=== PATIENT | male | born 1960 | race Caucasian/White ===

== ENCOUNTER → 2017-05-27 | Outpatient (CLI) | payer OTHER ==
[2017-05-27] MEDS: ZOLPIDEM 5 MG TABLET. PO ×2 (21:30)
[2017-05-27] MEDS: OXYMETAZOLINE 0.05% NASAL SPRAY 30ML BOTTLE. NS ×2 (21:30)
== END | disposition home or self-care (01) ==
LOC: SLPLAB 18:02
DX: G47.33 Obstructive sleep apnea (adult) (pediatric) (principal); R40.0 Somnolence
CPT/HCPCS: 95810

== ENCOUNTER → 2017-07-23 | Outpatient (CLI) | payer OTHER | END | disposition home or self-care (01) | LOC: ECHO 07:53 | DX: I36.1 Nonrheumatic tricuspid (valve) insufficiency (principal); I51.7 Cardiomegaly; F10.10 Alcohol abuse, uncomplicated; E66.9 Obesity, unspecified | CPT/HCPCS: 93306 ==

== ENCOUNTER → 2017-08-08 | Outpatient (CLI) | payer OTHER ==
[2017-08-08 09:55] LABS: ADD MAN DIFF? NO
[2017-08-08 10:07] LABS: BASO % 1 % (0-3); EOS # 0.1 x10^3/uL (0.0-0.7); EOS % 2 % (0-3); HEMATOCRIT 44.7 % (39.0-53.0); HEMOGLOBIN 15.5 g/dL (13.0-17.5); LYMPH # 1.8 x10^3/uL (1.0-4.8); LYMPH % 32 % (24-48); MEAN CORPUSCULAR HEMOGLOBIN 33 pg (25-35); MEAN CORPUSCULAR HGB CONC 35 g/dL (31-37); MEAN CORPUSCULAR VOLUME 95 fL (79-100); MONO # 0.5 x10^3/uL (0.0-1.1); MONO % 9 % (0-9); NEUT # 3.1 x10^3uL (1.8-7.7); NEUT % 57 % (31-73); PLATELET COUNT 289 x10^3/uL (140-400); RED BLOOD COUNT 4.72 x10^6/uL (4.30-5.70); RED CELL DISTRIBUTION WIDTH 12.4 % (11.5-14.5); WHITE BLOOD COUNT 5.5 x10^3/uL (4.0-11.0)
[2017-08-08 10:26] LABS: ALBUMIN 3.8 g/dL (3.4-5.0); ALK PHOS 57 U/L (46-116); ALT (SGPT) 59 U/L (16-63); ANION GAP 9 (6-14); AST (SGOT) 24 U/L (15-37); BLOOD UREA NITROGEN 12 mg/dL (8-26); BUN/CREATININE RATIO 12 (6-20); CALCIUM 9.1 mg/dL (8.5-10.1); CARBON DIOXIDE 27 mmol/L (21-32); CHLORIDE 106 mmol/L (98-107); CHOLESTEROL 180 mg/dL (0-200); GFR 76.5; GLUCOSE 94 mg/dL (70-99); HDLC 56 mg/dL (40-60); LDLC 107 mg/dL (0-100); NON-HDL CHOLESTEROL 124 mg/dL (0-129); POTASSIUM 4.4 mmol/L (3.5-5.1); SODIUM 142 mmol/L (136-145); TOTAL BILIRUBIN 0.5 mg/dL (0.2-1.0); TOTAL PROTEIN 7.6 g/dL (6.4-8.2); TRIGLYCERIDES 85 mg/dL (0-150); VLDLC 17 mg/dL (0-40)
[2017-08-08 10:27] LABS: CHOLESTEROL/HDL RATIO 3.2
[2017-08-08 10:39] LABS: THYROID STIM HORMONE (TSH) 0.635 uIU/mL (0.358-3.74)
[2017-08-08 11:38] LABS: PROSTATE SPECIFIC ANTIGEN 1.03 ng/mL (0.00-4.00)
== END | disposition home or self-care (01) ==
LOC: US 09:44
DX: Z12.5 Encounter for screening for malignant neoplasm of prostate (principal); Z13.220 Encounter for screening for lipoid disorders; F41.1 Generalized anxiety disorder; K76.0 Fatty (change of) liver, not elsewhere classified
CPT/HCPCS: 36415; 76700; 80053; 80061; 84443; 85025; G0103

== ENCOUNTER → 2017-11-08 | Outpatient (CLI) | payer OTHER ==
[2017-11-08] MEDS: BARIUM SULFATE 60% 355 ML SUSP PO (09:05)
== END | disposition home or self-care (01) ==
LOC: RAD 10:09
DX: R10.13 Epigastric pain (principal); R10.11 Right upper quadrant pain
CPT/HCPCS: 74250

== ENCOUNTER → 2017-11-22 | Outpatient (CLI) | payer OTHER ==
[~2017-11-22] VITALS: Ht 182.9 cm; Wt 138.3 kg
[~2017-11-22] MED LIST: NORMAL SALINE IV ONE; SINCALIDE IV ONE
--- NOTE | 2017-11-22 13:23 | RAD ---
HEPATOBILIARY SCAN WITH EJECTION FRACTION 11/22/2017 1:18 PM History: Abdominal pain for approx. 8 years Procedure: Serial static images are obtained of the liver and biliary system in the frontal projection following IV administration of 5 mCi of Technetium 99m Choletec. After filling of the gallbladder, 2.77 mcg of sincalide were infused over 30 minutes and dynamic imaging continued over this period. The gallbladder ejection fraction was calculated. Findings: There is prompt hepatic clearance of tracer from the blood pool. There is homogeneous distribution throughout the liver. The gallbladder ejection fraction measures 42% (normal gallbladder EF is 35% or greater). IMPRESSION: 1. The cystic duct and common bile duct are patent. Negative for acute cholecystitis. 2. The gallbladder ejection fraction is within normal limits Electronically signed by: Justin Zepeda MD (11/22/2017 1:19 PM) [id number]
== END | disposition home or self-care (01) ==
LOC: NM 14:09
PROVIDERS: ATTEND Internal Medicine Gastroenterology
DX: R10.13 Epigastric pain (principal)
CPT/HCPCS: 78226; 96374; 96375; A9537; J2805

== ENCOUNTER 2018-01-24 10:11 | Day surgery (SDC) | payer OTHER ==
[~2018-01-24] VITALS: Ht 182.9 cm; Wt 141.1 kg
[~2018-01-24 10:11] MED LIST changes: +HYDROmorphone 2 MG/ML VIAL IV PRN; +IV RINGERS,LACTATED 1000ML 1,000 ML IV SCH; +LIDOCAINE 1% PF 2 ML VIAL. ID PRN; +MORPHINE SULFATE 2 MG/ML VIAL. IV PRN; -NORMAL SALINE IV ONE; +ONDANSETRON PF 4 MG/2 ML VIAL. IV PRN; +PROCHLORPERAZINE 10 MG/2 ML VIAL. IV PRN; -SINCALIDE IV ONE; +fentaNYL PF VIAL 100 MCG/2 ML VIAL IV PRN
[2018-01-24] MEDS ORDERED: BUPIVAC MPF-EPI 0.5%-1:200000 30 ML VIAL. ONE (10:15)
[2018-01-24] MEDS ORDERED: OMEP20TA63 PO (10:30)
[2018-01-24] MEDS ORDERED: CITA40TA5 PO (10:30)
[2018-01-24] MEDS ORDERED: BUPR100T8 PO (10:31)
[2018-01-24] MEDS ORDERED: SEVOFLURANE 31 TO 60 MINUTES. IH ONE (12:05)
--- NOTE | 2018-01-24 12:23 | PDOC ---
BRIEF OPERATIVE NOTE Date: Jan 24, 2018 Pre-Op Diagnosis subcutaneous mass, RUQ abdominal wall Post-Op Diagnosis same, lipoma Procedure Performed excision Surgeon Raji Anesthesia Type: General Blood Loss 5cc IV Fluid 600cc Specimens Obtained fatty tumor 2.5x2x1 cm Findings fatty tumor Complications none Operative Note Wk # [id number] DEVANG HANDLEY MD Jan 24, 2018 12:23
--- NOTE | 2018-01-24 12:24 | DISCH ---
DISCHARGE INSTRUCTIONS Condition on Discharge Condition on Discharge: Stable Activity After Discharge Activity Instructions for Disc: Resume previous activity, Activity as tolerated Lifting Instructions after Dis: No heavy lifting Driving Instructions after Dis: Do not drive today Diet after Discharge Diet after Discharge: Regular Wound Incision Care Wound/Incision Care: Ice to area for comfort Other wound/incision instructi: august shower Saturday Follow-Up Follow up with: Raji in ten days DEVANG HANDLEY MD Jan 24, 2018 12:24
[2018-01-24] MEDS ORDERED: fentaNYL PF VIAL 100 MCG/2 ML VIAL ONE ×2 (12:25→12:36)
[2018-01-24] MEDS: fentaNYL PF VIAL 100 MCG/2 ML VIAL IV PRN ×2 (12:29→12:42)
[2018-01-24 12:36] VITALS: BP 137/84
[2018-01-24] MEDS ORDERED: ONDANSETRON PF 4 MG/2 ML VIAL. ONE (12:36)
[2018-01-24] MEDS ORDERED: DEXAMETHASONE SOD PHOS 20 MG/5 ML VIAL. ONE (12:36)
[2018-01-24] MEDS ORDERED: PROPOFOL 20 ML IV ONE ×2 (12:36→12:53)
[2018-01-24] MEDS ORDERED: LIDOCAINE 2% PF Vial for OR 5 ML VIAL. ONE (12:36)
[2018-01-24] MEDS ORDERED: HYDROcodone/APAP 7.5/325MG 1 TAB TABLET PO ONE ×2 (12:45→13:00)
[2018-01-24] MEDS ORDERED: HYDR-971 PO (12:46)
--- NOTE | 2018-01-24 15:12 | OP ---
DATE OF SURGERY: 01/24/2018 PREOPERATIVE DIAGNOSIS: Subcutaneous mass, right upper quadrant abdominal wall. POSTOPERATIVE DIAGNOSIS: Subcutaneous mass, right upper quadrant abdominal wall, lipoma. PROCEDURE: Excision specimen is 2.5 x 2 x 1 cm. SURGEON: Devang Handley MD. ANESTHESIA: General. ESTIMATED BLOOD LOSS: 5 mL. INTRAVENOUS FLUIDS: 600. INDICATIONS: The patient is an obese 57-year-old male with pain radiating from a subcutaneous mass, right upper quadrant. He is brought for removal. DESCRIPTION OF PROCEDURE: The patient brought to the operating suite, given a general LMA and the right upper quadrant of the abdomen was prepped and draped in usual sterile fashion. A marking pen had been used in the preop holding area with the patient's assistance to locate the area of concern. Incision was made and dissection carried down to a lobulated fatty tumor. This was removed intact after controlling blood supply with a 3-0 Vicryl tie. Wound closed with a subcuticular 4-0 Monocryl. Steri-Strips and sterile dressing applied. The patient was awakened from his anesthetic and taken to the recovery room in satisfactory condition. DEVANG HANDLEY MD DR: FAROOQ/nirmal JOB#: [id number] / [id number]
--- NOTE | 2018-01-28 14:08 | PATHOLOGY ---
[facility] Accession Number: [id number] . 01 Material submitted: . SUBCUTANEOUS MASS RIGHT UPPER QUADRANT . 01 Clinical history: . Abdominal mass. . 02 Diagnosis: Fibroadipose tissue, subcutaneous mass right upper quadrant: - Lipoma. LBQ/01/27/2018 . 02 Comment: There is no evidence of malignancy. (JPM/db; 01/24/18) . 02 Electronically signed: . Hayden Vance MD, Pathologist NPI- [id number] . 01 Gross description: . Received in formalin labeled "Nehemias Anderson, subcutaneous mass right upper quadrant" is a rodriguez-yellow encapsulated soft tissue mass measuring 2.5 x 2.2 x 1.0 cm. The external surface is inked black. The specimen is sectioned to reveal a rodriguez-yellow homogeneous cut surface without hemorrhage or necrosis. Clinical Review Nurse sections are submitted in cassette A1. ([facility] [place]; 01/26/2018) SYC/SYC . 02 Pathologist provided ICD-10: D17.79 . 02 CPT . 744458 Specimen Comment: A courtesy copy of this report has been sent to Specimen Comment: [phone], . Specimen Comment: Report sent to / DR RODRIGUEZ Specimen Comment: A duplicate report has been generated due to demographic updates. Performed at: 01 [facility] [address] [facility] [address], [place] [id number] MD Jeffrey Balderas MD Phone: [phone] Performed at: [address] [facility] [address] [place], [place] [id number] MD Hayden Vance MD Phone: [phone]
== END 2018-01-24 13:25 | disposition home or self-care (01) ==
LOC: SURG 10:11
PROVIDERS: ATTEND Surgery
DX: D17.79 Benign lipomatous neoplasm of other sites (principal); F41.9 Anxiety disorder, unspecified; F32.9 Major depressive disorder, single episode, unspecified; K21.9 Gastro-esophageal reflux disease without esophagitis; E66.01 Morbid (severe) obesity due to excess calories; Z68.41 Body mass index [BMI] 40.0-44.9, adult; Z98.890 Other specified postprocedural states; Z82.49 Family history of ischemic heart disease and other diseases of the circulatory system; Z72.89 Other problems related to lifestyle; Z88.0 Allergy status to penicillin; Z79.899 Other long term (current) drug therapy
CPT/HCPCS: 22902; 88304; A7015; J1100; J1956; J2001; J2405; J2704; J3010; J3490

== ENCOUNTER → 2019-12-31 | Outpatient (CLI) | payer OTHER ==
[~2019-12-31] MED LIST changes: +BUPR100T8 PO; +CITA40TA5 PO; +HYDR-3164 PO; -HYDROmorphone 2 MG/ML VIAL IV PRN; -IV RINGERS,LACTATED 1000ML 1,000 ML IV SCH; -LIDOCAINE 1% PF 2 ML VIAL. ID PRN; -MORPHINE SULFATE 2 MG/ML VIAL. IV PRN; +OMEP20TA63 PO; -ONDANSETRON PF 4 MG/2 ML VIAL. IV PRN; -PROCHLORPERAZINE 10 MG/2 ML VIAL. IV PRN; -fentaNYL PF VIAL 100 MCG/2 ML VIAL IV PRN
--- NOTE | 2020-01-01 09:02 | KCIC ---
EXAM: CERVICAL SPINE 2-3V 12/31/2019 12:00 AM CLINICAL INDICATION:Neck pain and right shoulder pain, right arm numbness for 2 weeks. COMPARISON:None TECHNIQUE:4 views of the cervical spine FINDINGS: C7 suboptimally visualized on lateral views. There is no acute fracture. Alignment is normal. Mild disc space narrowing with small osteophytes and uncovertebral joint proliferation at C4-C5 and C5-C6. There is mild to moderate facet arthrosis throughout the cervical spine. Dens is intact and symmetric and the ring of C1. Prevertebral soft tissues is normal. IMPRESSION:Mild degenerative disc disease at C4-C5 and C5-C6 and mild to moderate multilevel facet arthrosis. Electronically signed by: Seble Gillis MD (01/01/2020 8:59 AM) [id number]
== END | disposition home or self-care (01) ==
LOC: KCIC 14:56
PROVIDERS: ATTEND Family Medicine
DX: M47.812 Spondylosis without myelopathy or radiculopathy, cervical region (principal); M50.322 Other cervical disc degeneration at C5-C6 level; M25.511 Pain in right shoulder
CPT/HCPCS: 72040